=== PATIENT | female | born 1965 | race Caucasian/White ===

== ENCOUNTER 2024-10-22 12:18 | Day surgery (SDC) | payer BC ==
[~2024-10-22] VITALS: Ht 157.5 cm; Wt 63.5 kg
[~2024-10-22 12:18] MED LIST: ALLE12TA31 PO; BENZ200C70 PO; CLON-412 PO; CODE1CAP2 PO; ESTR2TAB3 PO; IPRA3SP NARES; LIDOCAINE 2% 100MG/5ML SDV (FOR ANES.) As Ordered ONE; MEDR1TAB2 PO; METO25TA4 PO; MONT10TA97 PO; NEXI20CA PO; ONDA-282 PO; RIZA10TA2 PO; SUCR1TAB56 PO; SUMA100T2 PO; ZOLP10TA2 PO; propofoL 200 MG/20 ML VIAL As Ordered ONE
[2024-10-22 14:22] VITALS: TEMP 96.9
[2024-10-22 14:50] VITALS: BP 142/75; O2SAT 100
== END 2024-10-22 15:09 | disposition home or self-care (01) ==
LOC: M OPP 12:18
PROVIDERS: ATTEND Internal Medicine Gastroenterology
DX: K64.0 First degree hemorrhoids (principal); R93.3 Abnormal findings on diagnostic imaging of other parts of digestive tract; K44.9 Diaphragmatic hernia without obstruction or gangrene; R10.13 Epigastric pain; Z79.899 Other long term (current) drug therapy

== ENCOUNTER 2025-04-12 08:09 | Day surgery (SDC) | payer MEDICARE ==
[~2025-04-12] VITALS: Ht 165.1 cm; Wt 71.2 kg
[2025-04-12] MEDS: INDOCYANINE GREEN 25 MG VIAL IV ONE (06:00)
[2025-04-12] MEDS: CelecoXIB 400 MG CAP PO ONE (06:00)
[~2025-04-12 08:09] MED LIST changes: +AMIT25TA19 PO; +KETOROLAC 30 MG/ML 1 ML VIAL As Ordered ONE; +LIDOCAINE 2% 100 MG/5 ML SDV (FOR ANES.) As Ordered ONE; -LIDOCAINE 2% 100MG/5ML SDV (FOR ANES.) As Ordered ONE; +LR 1,000 ML IV SCH; +ONDANSETRON 4MG/2ML VIAL As Ordered ONE; +ROCURONIUM BROMIDE 50MG/5ML VIAL As Ordered ONE; +ZOLP10TA11 PO; -ZOLP10TA2 PO; +dexAMETHasone 4 MG/ML 1 ML VIAL As Ordered ONE; -propofoL 200 MG/20 ML VIAL As Ordered ONE
[2025-04-12] MEDS ORDERED: MIDAZOLAM INJ 2 MG/2 ML VIAL As Ordered ONE (08:24)
[2025-04-12] MEDS: ceFAZolin SOD 2 GM IV ONCE IV ONE (11:02)
[2025-04-12] MEDS ORDERED: ACETAMINOPHEN 1000MG/100ML IV BAG As Ordered ONE (11:08)
[2025-04-12] MEDS: INDOCYANINE GREEN 25 MG VIAL As Ordered ONE (11:15)
[2025-04-12] MEDS ORDERED: MORPHINE 10 MG/ML 1 ML VIAL As Ordered ONE (11:19)
[2025-04-12] MEDS ORDERED: SUGAMMADEX SODIUM 200 MG/2 ML VIAL As Ordered ONE (11:43)
[2025-04-12] MEDS: LIDOCAINE 1% SDV 30 ML VIAL As Ordered ONE (12:29)
[2025-04-12] MEDS: ONDANSETRON 4MG/2ML VIAL IV PRN (13:01)
[2025-04-12] MEDS: MORPHINE 4 MG/ML 1 ML VIAL IV PRN (13:07)
[2025-04-12 14:29] VITALS: BP 138/70; TEMP 97.7; O2SAT 97
[2025-04-13] MEDS ORDERED: SEVOFLURANE INHAL SOLN 250 ML BTL As Ordered ONE (09:09)
== END 2025-04-12 15:24 | disposition home or self-care (01) ==
LOC: M SDC 08:09
PROVIDERS: ATTEND Surgery
DX: K81.1 Chronic cholecystitis (principal); K82.8 Other specified diseases of gallbladder; I10 Essential (primary) hypertension; Z88.5 Allergy status to narcotic agent; Z79.899 Other long term (current) drug therapy
CPT/HCPCS: 47563; 64488; 88304; 93005; J0131; J0665; J0688; J1100; J1885; J2250; J2405; J2765; J3010; Q9968; S2900